=== PATIENT | female | born 1965 | race Caucasian/White ===

== ENCOUNTER 2016-05-20 10:28 | Observation (INO) | payer BC, OTHER ==
--- NOTE | 2016-05-20 10:46 | ER Document Report ---
ED Medical Screen (RME) - General Stated Complaint: LEG PAIN Notes: 50 yo female c/o left leg redness, warmth and swelling. patient noted symptoms this morning when she woke up. no chest pain or shortness of breath. + hx/o DVT 20 yrs ago. nonsmoker, no recent travel, no recent surgery, no OCP. no pain TRAVEL OUTSIDE OF THE [place] IN LAST 30 DAYS: No
[2016-05-20 11:10] LABS: PROTHROMBIN TIME 12.8 SEC (11.4-15.4)
[2016-05-20 11:14] LABS: ABSOLUTE EOSINOPHILS # (AUTO) 0.1 10^3/uL (0.0-0.6); ABSOLUTE LYMPHOCYTES (AUTO) 1.5 10^3/uL (0.5-4.7); ABSOLUTE MONOCYTES (AUTO) 0.3 10^3/uL (0.1-1.4); ABSOLUTE NEUT (AUTO) 3.6 10^3/uL (1.7-8.2); BASOPHILS % (AUTO) 0.8 % (0-2); EOSINOPHILS % (AUTO) 2.3 % (0-6); HEMATOCRIT 41.7 % (36.0-47.0); HEMOGLOBIN 13.8 g/dL (12.0-15.5); HGB HCT DIFFERENCE -0.3; LYMPHOCYTES % (AUTO) 27.2 % (13-45); MEAN CORPUSCULAR HEMOGLOBIN 28.1 pg (27.0-33.4); MEAN CORPUSCULAR HGB CONC 33.2 g/dL (32.0-36.0); MEAN CORPUSCULAR VOLUME 85 fl (80-97); RED BLOOD COUNT 4.93 10^6/uL (3.72-5.28); RED CELL DISTRIBUTION WIDTH 14.6 % (11.5-14.0); SEGMENTED NEUTROPHILS % (AUTO) 63.7 % (42-78); WHITE BLOOD COUNT 5.7 10^3/uL (4.0-10.5)
[2016-05-20 11:29] LABS: ALANINE AMINOTRANSFERASE 26 U/L (9-52); ALBUMIN 4.3 g/dL (3.5-5.0); ALKALINE PHOSPHATASE 76 U/L (38-126); ANION GAP 8 (5-19); ASPARTATE AMINO TRANSFERASE 22 U/L (14-36); BILIRUBIN,TOTAL 1.5 mg/dL (0.2-1.3); BLOOD UREA NITROGEN 14 mg/dL (7-20); CALCIUM 9.1 mg/dL (8.4-10.2); CARBON DIOXIDE 28 mmol/L (22-30); CHLORIDE 103 mmol/L (98-107); CREATININE RESULT 0.82 mg/dL (0.52-1.25); GLUCOSE 94 mg/dL (75-110); POTASSIUM 4.8 mmol/L (3.6-5.0); SODIUM 139.4 mmol/L (137-145); TOTAL PROTEIN 7.2 g/dL (6.3-8.2)
--- NOTE | 2016-05-20 13:19 | ER Document Report ---
[id number]: Ambulatory Information source: Patient TRAVEL OUTSIDE OF THE [place] IN LAST 30 DAYS: No - HPI Patient complains to provider of: Swelling Location: Leg - left Recent injury: No <RAFAELA GALE - Last Filed: 05/25/16 22:41> - General Chief Complaint: Leg Swelling Stated Complaint: LEG PAIN Notes: Patient is a 50-year-old female that presents to the emergency department today with complaints of left leg swelling. Patient states that she has a history of a DVT in the left leg, approximately 20 years ago while . Patient states that with that DVT she did not have any pain, she had a tingling sensation from the knee to her foot. Patient states she does not have pain now but she does have a tingling sensation in the left calf. Patient states her only medication is acyclovir once daily. (RAFAELA GALE) - Related Data Allergies/Adverse Reactions: Penicillins Allergy (Verified 05/20/16 10:42) Home Medications: Current Home Medications Acyclovir [Acyclovir 400 mg Tablet] 400 mg PO DAILY 05/20/16 [History] Past Medical History - General Information source: Patient - Social History Smoking Status: Never Smoker Chew tobacco use (# tins/day): No Frequency of alcohol use: Occasional Drug Abuse: None Lives with: Family Family History: Reviewed & Not Pertinent Patient has suicidal ideation: No Patient has homicidal ideation: No - Past Medical History Cardiac Medical History: Reports: Hx DVT - with Past Surgical History: Reports: Hx Vascular Surgery - on left leg <RAFAELA GALE - Last Filed: 05/25/16 22:41> Review of Systems - Review of Systems Constitutional: No symptoms reported EENT: No symptoms reported Cardiovascular: No symptoms reported Respiratory: denies: Short of breath Gastrointestinal: No symptoms reported Genitourinary: No symptoms reported Female Genitourinary: No symptoms reported Musculoskeletal: See HPI, Leg swelling - left leg swelling, denies: calf pain Skin: No symptoms reported Hematologic/Lymphatic: No symptoms reported Neurological/Psychological: No symptoms reported -: Yes All other systems reviewed and negative <RAFAELA GALE - Last Filed: 05/25/16 22:41> Physical Exam - General General appearance: Appears well, Alert In distress: None - HEENT Head: Normocephalic, Atraumatic Eyes: Normal Extraocular movements intact: Yes - Respiratory Respiratory status: No respiratory distress Breath sounds: Normal - Cardiovascular Rhythm: Regular Heart sounds: Normal auscultation Murmur: No - Abdominal Inspection: Normal Distension: No distension - Extremities General upper extremity: Normal inspection, Normal ROM. No: Edema General lower extremity: Other - Left leg swelling, with leg flexion patient complains of a tingling sensation in her calf, venous distension in left leg which patient states is not new - Neurological Neuro grossly intact: Yes Cognition: Normal Speech: Normal - Psychological Associated symptoms: Normal affect, Normal mood - Skin Skin Temperature: Warm Skin Moisture: Dry Skin Color: Normal <RAFAELA GALE - Last Filed: 05/25/16 22:41> - Vital signs Vitals: Temp Pulse Resp BP Pulse Ox 98.0 F 79 16 137/79 H 98 05/20/16 10:43 05/20/16 10:43 05/20/16 10:43 05/20/16 10:43 05/20/16 10:43 Course - Laboratory Result Diagrams: 05/20/16 10:50 05/20/16 10:50 - Diagnostic Test Radiology reviewed: Reports reviewed - Venous Doppler shows nonocclusive thrombus in the proximal left femoral vein. - Consults Dr. Gutierrez Time consulted: 16:40 Consulted provider: will come to ER <MARKO MCKAY - Last Filed: 05/20/16 16:45> - Laboratory Result Diagrams: 05/21/16 04:36 05/21/16 04:36 <RAFAELA GALE - Last Filed: 05/25/16 22:41> - Re-evaluation Re-evalutation: 05/20/16 16:42 The venous Doppler was discussed with radiologist. He feels this is probably new clot in the proximal femoral vein. He cannot say for certain that it does not extend cephalad into the iliacs. He stated the only way to be certain of this would be venogram. Review of literature reveals that iliac involvement was an exclusion factor for outpatient management. (MARKO MCKAY) - Vital Signs Vital signs: Temp Pulse Resp BP Pulse Ox 98.2 F 94 14 124/72 98 05/21/16 12:28 05/21/16 12:28 05/21/16 12:28 05/21/16 12:28 05/21/16 12:28 - Laboratory Laboratory results interpreted by me: 05/20/16 05/20/16 05/20/16 10:50 10:50 10:50 RDW 14.6 H D-Dimer 2.97 H Total Bilirubin 1.5 H (MARKO MCKAY) (RAFAELA GALE) Discharge <MARKO MCKAY - Last Filed: 05/20/16 16:45> <RAFAELA GALE - Last Filed: 05/25/16 22:41> - Discharge Clinical Impression: DVT (deep venous thrombosis) Qualifiers: DVT location: lower extremity Affected thrombotic vein of extremity: femoral Laterality: left Chronicity: acute Qualified Code(s): I82.412 - Acute embolism and thrombosis of left femoral vein Condition: Stable Disposition: HOME, SELF-CARE Scribe Attestation: 05/20/16 16:45 I personally performed the services described in the documentation, reviewed and edited the documentation which was dictated to the scribe in my presence, and it accurately records my words and actions. (MARKO MCKAY) Scribe Documentation - Scribe Written by Scribe:: Orquidea Darby, [id number] 05/20/2016 acting as scribe for :: Isadora <RAFAELA GALE - Last Filed: 05/25/16 22:41>
[2016-05-20] MEDS ORDERED: ONDANSETRON HCL INJ/PF 4 MG/2 ML SDV IV PRN (18:10)
[2016-05-20] MEDS ORDERED: ACETAMINOPHEN 325 MG TABLET PO PRN (18:10)
--- NOTE | 2016-05-20 18:26 | PDOC H&P ---
History of Present Illness Admission Date/PCP: 05/20/16 Patient complains of: Left lower extremity swelling History of Present Illness: SHALINI PATEL is a 50 year old female, with prior history of DVT during woke up earlier this morning with swelling on the left lower extremity. There is no pain associated. There is tightness however. There is no chills or fever. Patient does not remember any bites nor injuries. Likewise there is no wounds nor any drainage noted. The patient went to the emergency room for evaluation. Lower extremity venous Doppler was obtained and found to have acute deep venous thrombosis. The patient was then referred for admission. Past Medical History Past Medical History: Medication reconciliation pending verification from the patient's pharmacist. Cardiac Medical History: Reports: DVT - with Renal/ Medical History: Reports: Other - Herpes simplex virus infection Past Surgical History Past Surgical History: Reports: Vascular Surgery - on left leg, vein stripping, Other - Tubal ligation, section Social History Information Source: Patient Lives with: Family Smoking Status: Never Smoker Frequency of Alcohol Use: None Hx Recreational Drug Use: No Drugs: None Family History Family History: Hypertension, Other - DVT Parental Family History Reviewed: Yes Children Family History Reviewed: Yes Sibling(s) Family History Reviewed.: Yes Medication/Allergy Allergies/Adverse Reactions: Penicillins Allergy (Verified 05/20/16 10:42) Review of Systems Constitutional: ABSENT: chills, fever(s), headache(s), weight gain, weight loss Eyes: ABSENT: visual disturbances Ears: ABSENT: hearing changes Cardiovascular: PRESENT: edema - Left leg. ABSENT: chest pain, dyspnea on exertion, orthropnea, palpitations Respiratory: ABSENT: cough, hemoptysis Gastrointestinal: ABSENT: abdominal pain, constipation, diarrhea, hematemesis, hematochezia, nausea, vomiting Genitourinary: ABSENT: dysuria, hematuria Musculoskeletal: ABSENT: joint swelling Integumentary: ABSENT: pruritus, rash, wounds Neurological: ABSENT: abnormal gait, abnormal speech, confusion, dizziness, focal weakness, syncope Psychiatric: ABSENT: anxiety, depression, homidical ideation, suicidal ideation Endocrine: ABSENT: cold intolerance, heat intolerance, polydipsia, polyuria Hematologic/Lymphatic: ABSENT: easy bleeding, easy bruising Physical Exam Vital Signs: Temp Pulse Resp BP Pulse Ox 97.7 F 92 18 132/73 H 99 05/20/16 17:49 05/20/16 17:49 05/20/16 17:49 05/20/16 17:49 05/20/16 17:49 General appearance: PRESENT: no acute distress, cooperative, other - Overweight Head exam: PRESENT: atraumatic, normocephalic Eye exam: PRESENT: conjunctiva pink, EOMI, PERRLA. ABSENT: scleral icterus Ear exam: PRESENT: normal external ear exam Mouth exam: PRESENT: moist, neck supple, tongue midline Throat exam: ABSENT: post pharyngeal erythema, tonsillar erythema Neck exam: ABSENT: carotid bruit, JVD, lymphadenopathy, thyromegaly Respiratory exam: PRESENT: clear to auscultation melissa. ABSENT: rales, rhonchi, wheezes Cardiovascular exam: PRESENT: RRR. ABSENT: diastolic murmur, rubs, systolic murmur Pulses: PRESENT: normal dorsalis pedis pul Vascular exam: PRESENT: normal capillary refill GI/Abdominal exam: PRESENT: normal bowel sounds, soft. ABSENT: distended, guarding, mass, organolmegaly, rebound, tenderness Rectal exam: PRESENT: deferred Extremities exam: PRESENT: full ROM, +1 edema - Left lower extremity, mildly prominent veins with mild varicosities. ABSENT: calf tenderness, clubbing Neurological exam: PRESENT: alert, awake, oriented to person, oriented to place , oriented to time, oriented to situation Psychiatric exam: PRESENT: appropriate affect, normal mood. ABSENT: homicidal ideation, suicidal ideation Skin exam: PRESENT: dry, intact, warm. ABSENT: cyanosis, rash Results Laboratory Results: 05/20/16 10:50 05/20/16 10:50 05/20/16 05/20/16 10:50 10:50 WBC 5.7 RBC 4.93 Hgb 13.8 Hct 41.7 MCV 85 MCH 28.1 MCHC 33.2 RDW 14.6 H Plt Count 158 Seg Neutrophils % 63.7 Lymphocytes % 27.2 Monocytes % 6.0 Eosinophils % 2.3 Basophils % 0.8 Absolute Neutrophils 3.6 Absolute Lymphocytes 1.5 Absolute Monocytes 0.3 Absolute Eosinophils 0.1 Absolute Basophils 0.0 Sodium 139.4 Potassium 4.8 Chloride 103 Carbon Dioxide 28 Anion Gap 8 BUN 14 Creatinine 0.82 Est GFR ( Amer) > 60 Est GFR (Non-Af Amer) > 60 Glucose 94 Calcium 9.1 Total Bilirubin 1.5 H AST 22 ALT 26 Alkaline Phosphatase 76 Total Protein 7.2 Albumin 4.3 Impressions: Venous Doppler Study 05/20/16 13:27 IMPRESSION: Positive for acute deep vein thrombosis. Assessment & Plan - Diagnosis (1) DVT (deep venous thrombosis) Qualifiers: DVT location: lower extremity Affected thrombotic vein of extremity: femoral Laterality: left Chronicity: acute Qualified Code(s): I82.412 - Acute embolism and thrombosis of left femoral vein Is this a current diagnosis for this admission?: Yes (2) Herpes simplex virus (HSV) infection Is this a current diagnosis for this admission?: Yes - Time Time Spent: 30 to 50 Minutes - Plan Summary Plan Summary: We will admit the patient to observation. We will begin with eliquis at 10 mg twice daily. Patient was educated about anticoagulation and side effects as well as symptoms of pulmonary embolism and she understood. She agreed to stay overnight for observation and wanted to go home the next morning and continue treatment on an outpatient basis. I advised her to seek hematology opinion regarding the duration and leg of treatment as dizziness or episode and recommended to have lifetime treatment. Patient is agreeable with the plan.
[2016-05-20] MEDS: APIXABAN 5 MG TABLET PO SCH (22:32)
[2016-05-21 05:05] LABS: HEMATOCRIT 38.7 % (36.0-47.0); HEMOGLOBIN 12.8 g/dL (12.0-15.5); HGB HCT DIFFERENCE -0.3; MEAN CORPUSCULAR HGB CONC 33.2 g/dL (32.0-36.0); MEAN CORPUSCULAR VOLUME 84 fl (80-97); RED BLOOD COUNT 4.58 10^6/uL (3.72-5.28); RED CELL DISTRIBUTION WIDTH 14.3 % (11.5-14.0); WHITE BLOOD COUNT 7.6 10^3/uL (4.0-10.5)
[2016-05-21 05:34] LABS: ANION GAP 10 (5-19); BLOOD UREA NITROGEN 16 mg/dL (7-20); CARBON DIOXIDE 27 mmol/L (22-30); CHLORIDE 102 mmol/L (98-107); GLUCOSE 100 mg/dL (75-110); POTASSIUM 4.2 mmol/L (3.6-5.0); SODIUM 138.5 mmol/L (137-145)
[2016-05-21] MEDS ORDERED: LANSOPRAZOLE 30 MG TAB.RAP.DR PO SCH (06:00)
[2016-05-21] MEDS: APIXABAN 5 MG TABLET PO SCH (09:35)
[2016-05-21] MEDS ORDERED: DOCUSATE SODIUM 100 MG CAPSULE PO SCH (10:00)
--- NOTE | 2016-05-21 12:06 | PDOC DISCHARGE SUMMARY ---
General - Admit/Disc Date/PCP Admission Date/Primary Care Provider: 05/20/16 18:10 Discharge Date: 05/21/16 - Discharge Diagnosis (1) DVT (deep venous thrombosis) Is this a current diagnosis for this admission?: Yes (2) Herpes simplex virus (HSV) infection Is this a current diagnosis for this admission?: Yes - Additional Information Resuscitation Status: Full Code Discharge Diet: Regular Discharge Activity: Activity As Tolerated, Balance Activity w/Rest Home Medications: Acyclovir [Acyclovir 400 mg Tablet] 400 mg PO DAILY 05/20/16 Apixaban [Eliquis 5 mg Tablet] 5 mg PO BID #60 tablet 05/21/16 Apixaban [Eliquis 5 mg Tablet] 10 mg PO Q12 #12 tablet 05/21/16 Additional Information: Take eliquis 10 mg twice a day for 6 days, then start the 5 mg twice a day. History of Present Illness Patient complains of: Left lower extremity swelling History of Present Illness: SHALINI PATEL is a 50 year old female, with prior history of DVT during woke up earlier this morning with swelling on the left lower extremity. There is no pain associated. There is tightness however. There is no chills or fever. Patient does not remember any bites nor injuries. Likewise there is no wounds nor any drainage noted. The patient went to the emergency room for evaluation. Lower extremity venous Doppler was obtained and found to have acute deep venous thrombosis. The patient was then referred for admission. Hospital Course Hospital Course: The patient was placed in observation. The patient was started on full anticoagulation with eliquis. Patient was given instructions to take 10 mg twice daily for total of 1 week and subsequently 5 mg twice a day. Patient had a recurrence of deep venous thrombosis and therefore may need to take the medication longer if not for life. She was advised to seek consultation outpatient with a outside plant field engineer for further evaluation and advice. She was educated about the side effects including bleeding as well as signs and symptoms of pulmonary embolism and to return to the emergency room if any of those occur, or if the swelling under lower extremity worsens. Patient was arranged with corporate meeting planner for the medication. She was given a discount card co-pays for the medication. The patient does not want to stay in the hospital and does want to continue treatment on an outpatient basis. She was therefore discharged home with above instructions. The rest of the hospital stays unremarkable. Physical Exam Vital Signs: Temp Pulse Resp BP Pulse Ox 98.5 F 77 12 105/67 97 05/21/16 08:00 05/21/16 08:00 05/21/16 08:00 05/21/16 08:00 05/21/16 08:00 Intake & Output 05/20/16 05/21/16 05/22/16 06:59 06:59 06:59 Intake Total 0 Balance 0 Weight 90.7 kg General appearance: PRESENT: no acute distress, cooperative Head exam: PRESENT: normocephalic Eye exam: PRESENT: EOMI Mouth exam: PRESENT: moist, neck supple Neck exam: ABSENT: JVD Respiratory exam: PRESENT: clear to auscultation melissa. ABSENT: rhonchi, wheezes Cardiovascular exam: PRESENT: RRR GI/Abdominal exam: PRESENT: soft. ABSENT: distended Extremities exam: PRESENT: +1 edema - Left lower extremity with no increasing redness, or warmth noted Neurological exam: PRESENT: alert, awake, oriented to person, oriented to place , oriented to time, oriented to situation Skin exam: PRESENT: dry, warm. ABSENT: cyanosis Results Laboratory Results: 05/21/16 04:36 05/21/16 04:36 05/21/16 05/21/16 04:36 04:36 WBC 7.6 RBC 4.58 Hgb 12.8 Hct 38.7 MCV 84 MCH 28.0 MCHC 33.2 RDW 14.3 H Plt Count 142 L Sodium 138.5 Potassium 4.2 Chloride 102 Carbon Dioxide 27 Anion Gap 10 BUN 16 Creatinine 0.90 Est GFR ( Amer) > 60 Est GFR (Non-Af Amer) > 60 Glucose 100 Calcium 9.0 Impressions: Venous Doppler Study 05/20/16 13:27 IMPRESSION: Positive for acute deep vein thrombosis. Qualifiers PATEINT BEING DISCHARGED WITH ANY OF THE FOLLOWING DIAGNOSIS?: VTE (PE or DVT) VTE patient discharged on overlapping Therapy?: No Reason(s) for not prescribing Overlap Therapy:: Not indicated - On eliquis. Plan Discharge Plan: Follow-up with primary care physician in one week. Follow-up with Dr. Curran in 1-2 weeks. Time Spent: Less than 30 Minutes
[2016-05-21 12:39] VITALS: BP 124/72
== END 2016-05-21 13:00 | disposition home or self-care (01) ==
LOC: ER 10:28 → EH 18:10 → 5 21:59
DX: I82.412 Acute embolism and thrombosis of left femoral vein (principal); Z86.718 Personal history of other venous thrombosis and embolism; Z88.0 Allergy status to penicillin; B00.9 Herpesviral infection, unspecified; Z79.899 Other long term (current) drug therapy
CPT/HCPCS: 99285; 36415 ×2; 85025; 85027; 85610; 80048; 80053; 85379; 93971; G0378 ×3; J3490

== ENCOUNTER 2016-09-06 23:43 | Emergency (ER) | payer OTHER ==
[2016-09-06 23:54] VITALS: BP 125/90
[2016-09-07] MEDS ORDERED: DIPH/PERTUSS(ACELL)/TETANUS VAC/PF 0.5 ML SYR (>=10YO) IM ONE (00:56)
[2016-09-07] MEDS ORDERED: OXYCODONE-ACETAMINOPHEN 5-325 MG TABLET PO ONE (00:56)
--- NOTE | 2016-09-07 01:00 | ER Document Report ---
ED Animal Bite - General Chief Complaint: Dog bite R hand Stated Complaint: POSSIBLE DOG BITE Time Seen by Provider: 09/07/16 00:42 Mode of Arrival: Ambulatory Information source: Patient TRAVEL OUTSIDE OF THE [place] IN LAST 30 DAYS: No - HPI Patient complains to provider of: right hand dog bite Location of injury: RUE Severity of injury: Bitten Onset: Just prior to arrival Quality of pain: Achy Pain Level: 4 Severity: Moderate Context of attack: Approached animal Type of animal: Dog Appearance of animal: Appeared well Animal captured or known: Yes Notes: Patient is a 51-year-old female who presents to the emergency room complaining of dog bite to her right hand, patient reports that her mixed breed dog that weighs approximately 80 pounds was eating a pork chop bone, patient attempted to take the bone away from the dog when he bit her on the hand, patient denies injury or pain elsewhere, the animal is healthy with vaccinations up-to-date, patient last tetanus shot is unknown, she does take Eliquis - Related Data Allergies/Adverse Reactions: Penicillins Allergy (Verified 05/20/16 10:42) Past Medical History - General Information source: Patient - Social History Smoking Status: Unknown if Ever Smoked Family History: Reviewed & Not Pertinent - Past Medical History Cardiac Medical History: Reports: Hx DVT - with Renal/ Medical History: Denies: Hx Peritoneal Dialysis Past Surgical History: Reports: Hx Vascular Surgery - on left leg, Other - Tubal ligation, section Review of Systems - Review of Systems Constitutional: No symptoms reported EENT: No symptoms reported Cardiovascular: No symptoms reported Respiratory: No symptoms reported Gastrointestinal: No symptoms reported Genitourinary: No symptoms reported Female Genitourinary: No symptoms reported Musculoskeletal: No symptoms reported Skin: See HPI Hematologic/Lymphatic: No symptoms reported Neurological/Psychological: No symptoms reported -: Yes All other systems reviewed and negative Physical Exam - Vital signs Vitals: Temp Pulse Resp BP Pulse Ox 98.2 F 103 H 18 125/90 H 96 09/06/16 23:52 09/06/16 23:52 09/06/16 23:52 09/06/16 23:52 09/06/16 23:52 - Notes Notes: - General General appearance: Appears well, Alert In distress: None - HEENT Head: Normocephalic, Atraumatic Eyes: Normal Conjunctiva: Normal Extraocular movements intact: Yes Eyelashes: Normal Pupils: PERRL - Respiratory Respiratory status: No respiratory distress - Cardiovascular Rhythm: Regular - Abdominal Inspection: Normal - Back Back: Normal - Extremities General upper extremity: Right hand with significant swelling over the dorsal aspect between the first and second metacarpals, as well as the fourth and fifth metacarpals, patient has several puncture wounds and lacerations on the dorsal surface, 2 small 1 cm puncture wound between the first and second metacarpals, a 1.5 cm laceration at the base of the third finger, and a 2 cm laceration in the webspace between the fourth and fifth digits into the dorsal surface over the metacarpal, patient has full range of motion, he does report a tingling sensation over the dorsal surface of the hand but distal sensation and motor is intact with brisk capillary refill and 2+ radial pulses General lower extremity: Normal inspection - Neurological Neuro grossly intact: Yes Orientation: AAOx4 Sheldon Coma Scale Eye Opening: Spontaneous Luma Coma Scale Verbal: Oriented Sheldon Coma Scale Motor: Obeys Commands Sheldon Coma Scale Total: 15 - Psychological Associated symptoms: Normal affect, Normal mood - Skin Skin Temperature: Warm Skin Moisture: Dry Skin Color: Normal Course - Re-evaluation Re-evalutation: 09/07/16 02:50 Findings unremarkable, patient wounds were loosely approximated loosely using sutures, she was started on antibiotics and provided with pain medication as well as wound care instructions and instructions for follow-up, advised to return if symptoms worsen, patient acknowledges understanding and agreement with this plan - Vital Signs Vital signs: Temp Pulse Resp BP Pulse Ox 98.2 F 103 H 18 125/90 H 96 09/06/16 23:52 09/06/16 23:52 09/06/16 23:52 09/06/16 23:52 09/06/16 23:52 Procedures - Laceration/Wound Repair Right Hand Time completed: 02:51 Wound length (cm): 1 Wound's Depth, Shape: Linear Laceration pre-procedure: Sterile PPE donned, Sterile drapes applied, Shur- Clens applied Anesthetic type: 1% Lidocaine w/epi Volume Anesthetic (mLs): 2 Wound explored: Clean Irrigated w/ Saline (mLs): 200 Wound Repaired With: Sutures Suture Size/Type: 4:0, Nylon Number of Sutures: 1 Post-procedure wound care: Sterile dressing applied Post-procedure NV exam normal: Yes Complications: No Hands back picture: 1 - 1 cm wound Right Hand #2 Time completed: 02:53 Wound length (cm): 1 Wound's Depth, Shape: Linear Laceration pre-procedure: Sterile PPE donned, Chloraprep applied, Sterile drapes applied Anesthetic type: 1% Lidocaine w/epi Volume Anesthetic (mLs): 2 Wound explored: Clean Irrigated w/ Saline (mLs): 250 Wound Repaired With: Sutures Suture Size/Type: 4:0, Nylon Number of Sutures: 1 Layer Closure?: No Post-procedure wound care: Sterile dressing applied Post-procedure NV exam normal: Yes Complications: No Hands back picture: 1 - 1 cm laceration Right Hand 3rd digit Time completed: 02:54 Wound length (cm): 1.5 Wound's Depth, Shape: Linear Laceration pre-procedure: Sterile PPE donned, Sterile drapes applied Anesthetic type: 1% Lidocaine w/epi Volume Anesthetic (mLs): 3 Wound explored: Clean Irrigated w/ Saline (mLs): 250 Wound Repaired With: Sutures Suture Size/Type: 4:0, Nylon Number of Sutures: 1 Layer Closure?: No Post-procedure wound care: Sterile dressing applied Post-procedure NV exam normal: Yes Complications: No Hands back picture: 1 - 1.5 cm laceration Right Hand 4th digit Time completed: 02:55 Wound length (cm): 2 Wound's Depth, Shape: Linear Laceration pre-procedure: Sterile PPE donned, Chloraprep applied, Sterile drapes applied Anesthetic type: 1% Lidocaine w/epi Volume Anesthetic (mLs): 3 Wound explored: Clean Irrigated w/ Saline (mLs): 250 Wound Repaired With: Sutures Suture Size/Type: 4:0, Nylon Number of Sutures: 3 Layer Closure?: No Post-procedure wound care: Sterile dressing applied Post-procedure NV exam normal: Yes Complications: No Hands back picture: 1 - 2 Centimeter laceration Discharge - Discharge Clinical Impression: Dog bite of right hand Qualifiers: Encounter type: initial encounter Qualified Code(s): S61.451A - Open bite of right hand, initial encounter Condition: Stable Disposition: HOME, SELF-CARE Instructions: Animal Bites ([facility]), Laceration Care ([facility]), Hand Laceration ([facility]) , Ice & Elevation ([facility]) Additional Instructions: Follow up with your primary care provider in 2-3 days for wound check. Keep wound clean and covered with antibiotic ointment and a clean dressing. Gently rinse with warm water and soap twice daily. Sutures to be removed in 7-10 days. Return to the emergency room immediately if symptoms worsen or any additional concerns. Prescriptions: Doxycycline Hyclate 100 mg PO BID #20 tablet Oxycodone HCl/Acetaminophen [Percocet 5-325 mg Tablet] 1 - 2 tab PO ASDIR PRN # 15 tablet PRN Reason:
[2016-09-07] MEDS ORDERED: LIDOCAINE 1%/EPINEPHRINE INJ 20 ML VIAL INJ ONE (01:25)
--- NOTE | 2016-09-07 01:37 | RADIOLOGY REPORT (SQ) ---
EXAM DESCRIPTION: HAND RIGHT 3 VIEWS COMPLETED DATE/TIME: 09/07/2016 1:25 am REASON FOR STUDY: dog bite COMPARISON: None. EXAM PARAMETERS: NUMBER OF VIEWS: Three views. TECHNIQUE: AP, lateral and oblique radiographic images acquired of the right hand. LIMITATIONS: None. FINDINGS: MINERALIZATION: Normal. BONES: No acute fracture or dislocation. No worrisome bone lesions. JOINTS: No effusions. SOFT TISSUES: Soft tissue bite injury, as described. OTHER: No other significant finding. IMPRESSION: No acute bone or joint finding. No foreign body. Soft tissue injury. TECHNICAL DOCUMENTATION: JOB ID: [id number] [employer]- All Rights Reserved
[2016-09-07] MEDS ORDERED: DOXYCYCLINE HYCLATE 100 MG TABLET PO ONE (02:35)
[2016-09-07] MEDS ORDERED: HYDROCODONE/ACETAMINOPHEN 5-325 MG 6 TAB/DSPK PO PRN (02:35)
== END 2016-09-07 02:45 | disposition home or self-care (01) ==
LOC: ER 23:43
PROC: 0HQFXZZ Repair Right Hand Skin, External Approach (ICD-10-PCS; principal; 2016-09-06)
DX: S61.451A Open bite of right hand, initial encounter (principal); S61.252A Open bite of right middle finger without damage to nail, initial encounter; S61.254A Open bite of right ring finger without damage to nail, initial encounter; W54.0XXA Bitten by dog, initial encounter; Y93.89 Activity, other specified; Y92.009 Unspecified place in unspecified non-institutional (private) residence as the place of occurrence of the external cause; Z79.02 Long term (current) use of antithrombotics/antiplatelets; Z88.0 Allergy status to penicillin
CPT/HCPCS: 99283; 73130; 90715; 12002; J3490

== ENCOUNTER 2016-09-11 11:47 | Emergency (ER) | payer OTHER ==
--- NOTE | 2016-09-11 12:52 | ER Document Report ---
ED Medical Screen (RME) - General Chief Complaint: Dog Bite Stated Complaint: DOG BITE/RIGHT HAND INJURY Time Seen by Provider: 09/11/16 12:47 Mode of Arrival: Ambulatory Information source: Patient TRAVEL OUTSIDE OF THE [place] IN LAST 30 DAYS: No - HPI Onset: Other - 5 DAYS AGO Onset/Duration: Sudden Quality of pain: Dull, Throbbing Severity: Moderate Associated Symptoms: denies: Chills, Fever Exacerbated by: Movement Relieved by: Remaining still Similar symptoms previously: No Recently seen / treated by doctor: Yes - [facility] ED 09/06, PCP YESTERDAY - Related Data Allergies/Adverse Reactions: Penicillins Allergy (Verified 09/11/16 11:49) Past Medical History - General Information source: Patient - Past Medical History Cardiac Medical History: Reports: Hx DVT - with Pulmonary Medical History: Reports: None Endocrine Medical History: Reports: None Renal/ Medical History: Reports: None. Denies: Hx Peritoneal Dialysis GI Medical History: Reports: None Psychiatric Medical History: Reports: None Past Surgical History: Reports: Hx Vascular Surgery - on left leg, Other - Tubal ligation, section Review of Systems - Review of Systems Constitutional: denies: Chills, Fever EENT: No symptoms reported Cardiovascular: No symptoms reported Respiratory: No symptoms reported Musculoskeletal: See HPI Skin: See HPI Physical Exam - Vital signs Vitals: Temp Pulse Resp BP Pulse Ox 97.8 F 80 18 151/83 H 97 09/11/16 11:49 09/11/16 11:49 09/11/16 11:49 09/11/16 11:49 09/11/16 11:49 Interpretation: Hypertensive. No: Tachycardic, Tachypneic, Febrile - General General appearance: Appears well, Alert In distress: None - HEENT Head: Normocephalic Eyes: Normal Mouth/Lips: Normal Mucous membranes: Normal - Respiratory Respiratory status: No respiratory distress - Extremities General upper extremity: No: Normal inspection - R. HAND (SEE BELOW) Hand: Tender, Swelling, Other - WOUNDS SUTURED CLOSED. No: Tendon deficit Course - Vital Signs Vital signs: Temp Pulse Resp BP Pulse Ox 97.8 F 80 18 151/83 H 97 09/11/16 11:49 09/11/16 11:49 09/11/16 11:49 09/11/16 11:49 09/11/16 11:49
[2016-09-11 13:26] LABS: ABSOLUTE BASOPHILS # (AUTO) 0.1 10^3/uL (0.0-0.2); ABSOLUTE EOSINOPHILS # (AUTO) 0.2 10^3/uL (0.0-0.6); ABSOLUTE MONOCYTES (AUTO) 0.5 10^3/uL (0.1-1.4); ABSOLUTE NEUT (AUTO) 4.9 10^3/uL (1.7-8.2); BASOPHILS % (AUTO) 0.7 % (0-2); EOSINOPHILS % (AUTO) 2.5 % (0-6); HEMATOCRIT 43.6 % (36.0-47.0); HGB HCT DIFFERENCE -1.6; LYMPHOCYTES % (AUTO) 25.9 % (13-45); MEAN CORPUSCULAR HEMOGLOBIN 28.2 pg (27.0-33.4); MEAN CORPUSCULAR HGB CONC 32.2 g/dL (32.0-36.0); MEAN CORPUSCULAR VOLUME 88 fl (80-97); MONOCYTES % (AUTO) 6.2 % (3-13); RED BLOOD COUNT 4.98 10^6/uL (3.72-5.28); RED CELL DISTRIBUTION WIDTH 15.3 % (11.5-14.0); SEGMENTED NEUTROPHILS % (AUTO) 64.7 % (42-78); WHITE BLOOD COUNT 7.6 10^3/uL (4.0-10.5)
[2016-09-11] MEDS ORDERED: MORPHINE SULFATE 10 MG/ML INJ IV ONE (13:40)
[2016-09-11] MEDS ORDERED: CLINDAMYCIN 600 MG/D5W RTU 50 ML IV ONE (13:40)
--- NOTE | 2016-09-11 13:41 | ER Document Report ---
ED Wound - General Chief Complaint: Dog Bite Stated Complaint: DOG BITE/RIGHT HAND INJURY Time Seen by Provider: 09/11/16 12:47 Mode of Arrival: Ambulatory Information source: Patient TRAVEL OUTSIDE OF THE [place] IN LAST 30 DAYS: No - HPI Patient complains to provider of: Wound infection Occurred: Yesterday Onset/Duration: Persistent Quality of pain: Achy, Pressure Severity: Moderate Pain Level: 3 Context: Injury Skin Temperature: Hot Skin Color: Erythema Capillary refill: < 3 seconds Sensations intact: Yes Distal pulses present: Yes Associated Symptoms: Drainage, Swelling Notes: Patient is a 51-year-old female who presents to the emergency room complaining of infection to wounds on her right hand, patient was seen in this emergency room on 09/06/2016 by this clinician after being bit on the right hand by her dog , her wounds were gaping at the time and therefore were loosely approximated with sutures, and she was started on prophylactic antibiotics, over the past 2 days she has developed increased redness and swelling with purulent drainage, she went to urgent care center yesterday an attempt to get treated and was started on Flagyl but was not provided with any additional pain medication - Related Data Allergies/Adverse Reactions: Penicillins Allergy (Verified 09/11/16 11:49) Past Medical History - General Information source: Patient - Social History Smoking Status: Unknown if Ever Smoked Family History: Reviewed & Not Pertinent Patient has suicidal ideation: No Patient has homicidal ideation: No - Past Medical History Cardiac Medical History: Reports: Hx DVT - with Pulmonary Medical History: Reports: None Endocrine Medical History: Reports: None Renal/ Medical History: Reports: None. Denies: Hx Peritoneal Dialysis GI Medical History: Reports: None Psychiatric Medical History: Reports: None Past Surgical History: Reports: Hx Vascular Surgery - on left leg, Other - Tubal ligation, section Review of Systems - Review of Systems Constitutional: No symptoms reported EENT: No symptoms reported Cardiovascular: No symptoms reported Respiratory: No symptoms reported Gastrointestinal: No symptoms reported Genitourinary: No symptoms reported Female Genitourinary: No symptoms reported Musculoskeletal: No symptoms reported Skin: See HPI Hematologic/Lymphatic: No symptoms reported Neurological/Psychological: No symptoms reported -: Yes All other systems reviewed and negative Physical Exam - Vital signs Vitals: Temp Pulse Resp BP Pulse Ox 97.8 F 80 18 151/83 H 97 09/11/16 11:49 09/11/16 11:49 09/11/16 11:49 09/11/16 11:49 09/11/16 11:49 - Notes Notes: - General General appearance: Appears well, Alert In distress: None - HEENT Head: Normocephalic, Atraumatic Eyes: Normal Conjunctiva: Normal Extraocular movements intact: Yes Eyelashes: Normal Pupils: PERRL - Respiratory Respiratory status: No respiratory distress - Cardiovascular Rhythm: Regular - Abdominal Inspection: Normal - Back Back: Normal - Extremities General upper extremity: Normal inspection General lower extremity: With sutures in place, significant erythema and swelling surrounding the sutured areas particularly at the webspace between the first and second digits, tender to palpate, purulent drainage, distal sensation and motor is intact, 2+ radial pulse - Neurological Neuro grossly intact: Yes Orientation: AAOx4 [place] Coma Scale Eye Opening: Spontaneous [place] Coma Scale Verbal: Oriented [place] Coma Scale Motor: Obeys Commands [place] Coma Scale Total: 15 - Psychological Associated symptoms: Normal affect, Normal mood - Skin Skin Temperature: Warm Skin Moisture: Dry Skin Color: Normal Course - Re-evaluation Re-evalutation: 09/11/16 17:24 Patient with purulent drainage surrounding wounds from a dog bite, she was initially placed on doxycycline as she is penicillin allergic, but developed the symptoms, sutures were removed, wounds were cleaned with sterile saline, there was a small amount of purulent drainage from the wound at the base of the thumb, patient was started on clindamycin, given a dose of IV clindamycin in the emergency room, provided with pain medication and advised to follow-up or return if symptoms worsen, patient acknowledges understanding and agreement with - Vital Signs Vital signs: Temp Pulse Resp BP Pulse Ox 97.8 F 84 18 140/83 H 99 09/11/16 11:49 09/11/16 15:44 09/11/16 15:44 09/11/16 15:44 09/11/16 15:44 - Laboratory Result Diagrams: 09/11/16 13:05 09/11/16 14:25 Laboratory results interpreted by me: 09/11/16 09/11/16 13:05 14:25 RDW 15.3 H AST 57 H ALT 95 H Alkaline Phosphatase 152 H Discharge - Discharge Clinical Impression: Wound infection Dog bite of right hand Qualifiers: Encounter type: sequela Qualified Code(s): S61.451S - Open bite of right hand, sequela Condition: Stable Disposition: HOME, SELF-CARE Instructions: Wound Infection ([facility]), Cellulitis ([facility]), Animal Bites ([facility]) Additional Instructions: Follow up with your primary care provider in 2-3 days for wound check. Keep wound clean and covered with antibiotic ointment and a clean dressing. Gently rinse with warm water and soap or a 50-50 peroxide and water solution twice daily. Return to the emergency room immediately if symptoms worsen or any additional concerns. Prescriptions: Clindamycin HCl [Cleocin 150 mg Capsule] 450 mg PO Q6 10 Days Fluconazole [Diflucan] 150 mg PO ONCE PRN #1 tablet PRN Reason: Oxycodone HCl/Acetaminophen [Percocet 5-325 mg Tablet] 1 - 2 tab PO ASDIR PRN # 30 tablet PRN Reason:
[2016-09-11 14:59] LABS: ALANINE AMINOTRANSFERASE 95 U/L (9-52); ALKALINE PHOSPHATASE 152 U/L (38-126); ANION GAP 10 (5-19); ASPARTATE AMINO TRANSFERASE 57 U/L (14-36); BILIRUBIN,DIRECT 0.4 mg/dL (0.0-0.4); BILIRUBIN,TOTAL 1.2 mg/dL (0.2-1.3); BLOOD UREA NITROGEN 13 mg/dL (7-20); CALCIUM 9.6 mg/dL (8.4-10.2); CARBON DIOXIDE 29 mmol/L (22-30); CHLORIDE 101 mmol/L (98-107); CREATININE RESULT 0.84 mg/dL (0.52-1.25); GLUCOSE 96 mg/dL (75-110); POTASSIUM 4.6 mmol/L (3.6-5.0); SODIUM 140.3 mmol/L (137-145); TOTAL PROTEIN 7.5 g/dL (6.3-8.2)
[2016-09-11 15:45] VITALS: BP 140/83
== END 2016-09-11 15:54 | disposition home or self-care (01) ==
LOC: ER 11:47
DX: S61.451S Open bite of right hand, sequela (principal); W54.0XXS Bitten by dog, sequela
CPT/HCPCS: 99283; 96375; 96365; 36415; 87070; 87205; 85025; 80053; J2270

== ENCOUNTER → 2018-08-25 | Outpatient (CLI) | payer OTHER ==
--- NOTE | 2018-08-25 13:14 | WOMENS IMAGING REPORT ---
EXAM DESCRIPTION: BILAT SCREENING MAMMO W/CAD COMPLETED DATE/TIME: 08/25/2018 12:36 pm REASON FOR STUDY: ROUTINE BILATERAL SCREENING;Z12.31 Z12.31 ENCNTR SCREEN MAMMOGRAM FOR MALIGNANT N EOPLASM OF [place] COMPARISON: [id number] EXAM PARAMETERS: Standard craniocaudal and mediolateral oblique views of each breast recorded using digital acquisition. Read with the assistance of CAD. .[facility] - [employer] Version 9.2 LIMITATIONS: None. FINDINGS: No suspicious masses, suspicious calcifications or architectural distortion. No areas of s uspicion. IMPRESSION: ASSESSMENT: Negative MAMMOGRAM. BIRADS 1 BREAST DENSITY: b. There are scattered areas of fibroglandular density. BIRAD: 1 NEGATIVE RECOMMENDATION: ROUTINE SCREENING COMMENT: The patient has been notified of the results by letter per MQSA requirements. Additional no tification policies are in place for contacting patient with suspicious or incomplete findings. Quality ID #[id number]: The [employer] recommends an annual screening mammogram for women aged 40 years or over. This facility utilizes a reminder system to ensure that all patients receive reminder letters, and/or direct phone calls for appointments. This includes reminders for routine scr eening mammograms, diagnostic mammograms, or other Breast Imaging Interventions when appropriate. Th is patient will be placed in the appropriate reminder system. TECHNICAL DOCUMENTATION: FINDING NUMBER: (1) ASSESSMENT: (1) JOB ID: [id number] [employer]- All Rights Reserved Reading location - IP/workstation name: [email or web address]
== END ==
LOC: WI 11:56
PROVIDERS: ATTEND Family Medicine
DX: Z12.31 Encounter for screening mammogram for malignant neoplasm of breast (principal)
CPT/HCPCS: 77067